=== PATIENT | female | born 1975 | race Caucasian/White ===

== ENCOUNTER 2017-07-30 08:45 | Observation (INO) | payer OTHER ==
--- NOTE | 2017-07-27 19:53 | PDGENHP ---
History and Physical History and Physical: Assessment and Plan: 1. Endometriosis of pelvic peritoneum Paris has chronic pelvic pain causing dysmenorrhea and dyspareunia from persistent pelvic endometriosis. We reviewed all conservative and surgical options. At the end of our discussion she is interested in surgical removal. This will be a robotic excision of endometriosis likely with hysterectomy mid urethral sling and rectocele repair. 2. Dysmenorrhea 3. Dyspareunia, female 4. Genuine stress urinary incontinence 5. Rectocele Subjective: Patient ID: Paris Cruz is a 41 y.o. female who presents to [facility] for endometriosis. HPI Paris is a 41-year-old para 2 woman who presents to discuss endometriosis. She has had dysmenorrhea and pelvic pain her entire life. She also has heavy menstrual flow. She often had to miss work or school during her menses. In 2012 she underwent an endometrial ablation treatment to treat her heavy menses. She did not have time to recover from a hysterectomy because she was in graduate school. This did greatly reduce her flow but not her pain. She feels constant left lower quadrant pain. There is some cyclic nature on the right side. The pain radiates to her thighs back and hips. She also has some joint and muscle pain. She does have deep dyspareunia. She has a history of irritable bowel syndrome which flares with her cycles. She can have up to 3-5 bowel movements per day. She had a colonoscopy in 2013 which was reportedly normal. She underwent a laparoscopy in June 2014 where she was found to have endometriosis. This apparently was fulgurated. She brought in a copy of operative photos which shows some thick nodularity of the uterosacral ligaments especially the right. A left salpingectomy was performed with endometriosis on the pathology specimen. Additionally she leaks urine with coughing laughing and sneezing. She has tried pelvic muscle strengthening without success in her leaking. She does at times have to splint the perineal body to pass bowel movements. Her regular real estate inspector is Maricruz Tolbert. Paris is and receiving a degree in counseling. She is extremely tired of the pain. She does not desire anymore children. PastMedicalHistory Past Medical History: Diagnosis Date Anxiety Hypertension PastSurgicalHistory Past Surgical History: Procedure Laterality Date CHOLECYSTECTOMY ENDOMETRIAL ABLATION HERNIA REPAIR LEEP CURRENT MEDICATIONS: Current Outpatient Prescriptions Medication Sig ALPRAZolam (XANAX) 0.5 mg tablet Take 1 mg by mouth daily as needed. losartan (COZAAR) 50 mg tablet Take 1 tablet by mouth daily. omeprazole (PRILOSEC) 20 mg capsule Take 40 mg by mouth every morning ( before breakfast). No current facility-administered medications for this visit. ALLERGIES: Patient has no known allergies. I have reviewed, verified and agree with the past medical, surgical, , family, social and ROS history as documented by the RN today. Objective: Vital Signs: Visit Vitals BP 100/78 Pulse 85 Temp 37.3 C (99.2 F) (Temporal Artery) Resp 16 Ht 1.575 m (5' 2") Wt 89 kg (196 lb 3.2 oz) SpO2 96% BMI 35.89 kg/m Physical Exam Gen: This is an alert, well developed woman in no distress. Neuro: She moves all extremities. Psych: She is appropriate, oriented, with normal affect. Neck: No thyroid enlargement, adenopathy, or tenderness. Lungs: Clear to ascultation, no wheezes or rales. Heart: Regular rate and rhythm without obvious murmurs. Abdomen: Soft, non-tender, without guarding, rebound, or masses. Extremities: No edema or cyanosis. Pelvic: Normal external genitalia. Non-gaping introitus, vagina without discharge, adequately estrogenized, no significant prolapse. Cervix without lesions or discharge. Uterus normal sized, mobile, non-tender. Adnexa non- tender without enlargement. The uterus has reduced mobility. She is tender along the posterior cervix and insertion of the uterosacral ligaments. The uterosacral ligaments are exquisitely tender especially on the right with tenderness in the posterior cul-de-sac. She has a greater than second-degree low rectocele. The urethra is mobile with obvious leakage of urine when coughing. DATA: I have reviewed the pertinent medical records. TIME/COMMUNICATION: I personally spent a total of 50 minutes. Of that 35 minutes was counseling/ coordination of patient's care. See my note above for details. Andry Rodriguez MD Board Certified Female Pelvic Medicine and Reconstructive Surgery Director of Minimally Invasive Gynecologic Surgery, [facility] Surgeon in Minimally Invasive Gynecologic Surgery [facility] Surgeon in Robotic Surgery
[2017-07-30] MEDS ORDERED: ACETAMINOPHEN 500 MG TAB PO ONE (08:56)
[2017-07-30] MEDS ORDERED: PHENAZOPYRIDINE HCL 200 MG TAB PO ONE (08:56)
[2017-07-30] MEDS ORDERED: GABAPENTIN 400 MG CAP PO ONE (08:56)
[2017-07-30] MEDS ORDERED: LR 1,000 ML IV ONE (08:57)
[2017-07-30] MEDS ORDERED: LIDOCAINE 1% 2 ML INJ ID PRN (08:57)
--- NOTE | 2017-07-30 09:05 | PDHPUP ---
History & Physical Update H&P update statement: This history and physical update is based on an assessment of the patient which was completed after admission or registration (within 24 hours), but prior to the surgery/procedure. H&P update: H&P reviewed & patient examined, no change in patient's condition since H&P completed
[2017-07-30] MEDS ORDERED: ceFAZolin 2 GM/SWFI 2 GM/20 ML SYR IVP ONE (09:22)
--- NOTE | 2017-07-30 09:32 | PDANEPAE ---
ANE History of Present Illness endometriosis ANE Past Medical History - Cardiovascular History Hx Hypertension: Yes Hx Arrhythmias: No Hx Chest Pain: No Hx Coronary Artery / Peripheral Vascular Disease: No Hx CHF / Valvular Disease: No Hx Palpitations: Yes - Pulmonary History Hx COPD: No Hx Asthma/Reactive Airway Disease: No Hx Recent Upper Respiratory Infection: No Hx Oxygen in Use at Home: No Hx Sleep Apnea: No Sleep Apnea Screening Result - Last Documented: Negative - Neurologic History Hx Cerebrovascular Accident: No Hx Seizures: No Hx Dementia: No - Endocrine History Hx Diabetes: No Obesity: yes - Renal History Hx Renal Disorders: No - Liver History Hx Hepatic Disorders: No - Neurological & Psychiatric Hx Hx Neurological and Psychiatric Disorders: Yes Neurological / Psychiatric History Comment: anxiety,depression - Cancer History Hx Cancer: No - Congenital Disorder History Hx Congenital Disorders: No - GI History Hx Gastrointestinal Disorders: Yes Gastrointestinal History Comment: gerd ,ibs,reflux - Other Health History Other Health History: ear pain, ecxma top of hands. endometrosis - Chronic Pain History Chronic Pain: Yes (chronic pian in joints) - Surgical History Prior Surgeries: lap endometriosis. ablation uterine ANE Review of Systems Review of systems is: negative Review of Systems: - Exercise capacity Exercise capacity: >=4 METS METS (RN): 4 METS ANE Patient History - Allergies Allergies/Adverse Reactions: No Known Allergies Allergy (Verified 07/09/17 14:31) - Home Medications Home Medications: Herbals/Supplements -Info Only 07/09/17 [Last Taken 07/22/17] Losartan Potassium 07/09/17 [Last Taken 07/30/17 07:00] Meloxicam 07/09/17 [Last Taken 07/22/17] Omeprazole 07/09/17 [Last Taken 07/30/17 07:00] Xanax 07/09/17 [Last Taken 07/29/17] - NPO status NPO Status: no food or drink >8 hours NPO Since - Liquids (Date): 07/29/17 NPO Since - Liquids (Time): 07:00 NPO Since - Solids (Date): 07/29/17 NPO Since - Solids (Time): 23:00 - Anes Hx Anes Hx: post operative nausea and vomiting - Smoking Hx Smoking Status: Never smoked - Alcohol Use Alcohol Use: Occasionally - Family Anes Hx Family Anes Hx: none Family Hx Anesthesia Complications: none ANE Labs/Vital Signs - Vital Signs Vital Signs: reviewed preoperatively; see RN documention for details Blood Pressure: 157/107 Heart Rate: 96 Respiratory Rate: 16 O2 Sat (%): 96 Height: 157.48 cm Weight: 88.451 kg ANE Physical Exam - Airway Neck exam: FROM Mallampati Score: Class 2 Mouth exam: normal dental/mouth exam - Pulmonary Pulmonary: no respiratory distress - Cardiovascular Cardiovascular: regular rate and rhythym - ASA Status ASA Status: II ANE Anesthesia Plan Anesthesia Plan: general endotracheal anesthesia
[2017-07-30] MEDS ORDERED: MIDAZOLAM 2 MG/2 ML VIAL IVP ONE (09:33)
[2017-07-30] MEDS ORDERED: SCOPOLAMINE HYDROBROMIDE 1 MG/3 DAYS PATCH TD ONE (09:34)
[2017-07-30] MEDS ORDERED: LIDOCAINE 2% 5 ML SDV ONE (09:44)
[2017-07-30] MEDS ORDERED: ROCURONIUM 100 MG/10 ML VIAL ONE (09:44)
[2017-07-30] MEDS ORDERED: PROPOFOL 200 MG/20 ML VIAL ONE (09:44)
[2017-07-30] MEDS ORDERED: fentaNYL 100 MCG/2 ML INJ ONE ×3 (09:44→12:28)
[2017-07-30] MEDS ORDERED: BUPIVACAINE/EPI 0.5% 30 ML SDV ONE (09:59)
[2017-07-30] MEDS ORDERED: DEXAMETHASONE 4 MG/ML VIAL ONE ×2 (10:11)
[2017-07-30] MEDS ORDERED: ONDANSETRON 4 MG/2 ML VIAL ONE ×2 (10:11→12:24)
[2017-07-30] MEDS ORDERED: ALBUTEROL HFA ANES ONLY 200 PUFFS/8.5 GM MDI IH ONE (10:36)
[2017-07-30] MEDS ORDERED: ONDANSETRON 4 MG/2 ML VIAL IVP PRN ×2 (12:01→12:07)
[2017-07-30] MEDS ORDERED: ONDANSETRON DISINTEGRATING 4 MG TAB PO PRN (12:01)
--- NOTE | 2017-07-30 12:06 | POSTOPPROG ---
Post Op Note Date of Operation: 07/30/17 Surgeon: Andry Rodriguez Janitorial Cleaner: Sofy Amaya Anesthesia: GET(General Endotracheal) Pre-op Diagnosis: endometriosis, rectocele, stress incontinence Post-op Diagnosis: same Procedure: robotic hyst, RSO, bilat ureterolysis, rectocele repain Findings: ureters function at end of case Inf/Abcess present in the surg proc area at time of surgery?: No EBL: Minimal Complications: None
[2017-07-30] MEDS ORDERED: HYDROmorphONE/DILAUDID 2 MG/ML INJ IVP PRN (12:07)
[2017-07-30] MEDS ORDERED: DIAZEPAM 5 MG/ML 1 ML SYR IVP PRN (12:07)
[2017-07-30] MEDS ORDERED: ALBUTEROL 3 ML DEYVIAL IH PRN (12:07)
[2017-07-30] MEDS ORDERED: LR 500 ML IV PRN (12:07)
[2017-07-30] MEDS ORDERED: NALOXONE HCL 0.4 MG/ML INJ IVP PRN (12:07)
[2017-07-30] MEDS ORDERED: HYDROCODONE/APAP 5/325 TAB PO PRN (12:07)
[2017-07-30] MEDS ORDERED: PROMETHAZINE HCL 25 MG/ML INJ IVP PRN (12:07)
[2017-07-30] MEDS ORDERED: oxyCODONE IR 5 MG TAB PO PRN (12:07)
--- NOTE | 2017-07-30 12:07 | POSTANESTH ---
Post Anesthetic Evaluation Cardiovascular Status: Normal, Stable Respiratory Status: Normal, Stable Level of Consciousness/Mental Status: Can Participate in Eval Pain Control: Adequate, Prn Tx Ordered Nausea/Vomiting Control: Adequate, Prn Tx Ordered Complications Possibly Related to Anesthesia: None Noted
[2017-07-30] MEDS: fentaNYL 100 MCG/2 ML INJ IVP PRN ×2 (12:28→12:45)
[2017-07-30] MEDS ORDERED: LR 1,000 ML IV SCH (12:30)
[2017-07-30] MEDS ORDERED: OXYCODONE/APAP 5/325 TAB PO PRN (13:06)
[2017-07-30] MEDS: PROMETHAZINE HCL 25 MG/ML INJ IVP PRN (14:44)
[2017-07-30] MEDS: HYDROmorphONE/DILAUDID 2 MG/ML INJ IVP PRN ×2 (14:45→20:00)
[2017-07-30] MEDS: KETOROLAC 30 MG/1 ML SDV IVP SCH ×3 (15:43→21:59)
--- NOTE | 2017-07-30 17:50 | GOP ---
[f rep st] OPERATIVE REPORT DATE OF OPERATION: 07/30/2017 SURGEON: Andry Rodriguez MD FURNACE FIRER: Sofy Amaya CFA. ANESTHESIA: General. PREOPERATIVE DIAGNOSIS: 1. Endometriosis. 2. Dysmenorrhea. 3. Cyclic pelvic pain. 4. Symptomatic rectocele. 5. Stress urinary incontinence. 6. Second-degree uterine prolapse. POSTOPERATIVE DIAGNOSIS: 1. Endometriosis. 2. Dysmenorrhea. 3. Cyclic pelvic pain. 4. Symptomatic rectocele. 5. Stress urinary incontinence. 6. Second-degree uterine prolapse. PROCEDURE PERFORMED: 1. Robotic-assisted total laparoscopic hysterectomy, left salpingo-oophorectomy, right salpingectomy . 2. Excision of endometriosis throughout posterior cul-de-sac and bilateral ovarian fossae. 3. Bilateral ureterolysis. 4. Uterosacral ligament colpopexy. 5. Right ovarian pexy. 6. Rectocele repair. 7. Transobturator sling. 8. Cystoscopy. FINDINGS: SPECIMENS: 1. Uterus, bilateral tubes and left ovary. 1. Pelvic peritoneum with endometriosis. 2. ESTIMATED BLOOD LOSS: Scant. DESCRIPTION OF PROCEDURE: The patient was taken to the operating room where she was identified. Gen eral anesthesia was administered and found to be adequate. She was placed in the lithotomy position and prepared and draped in normal sterile fashion. A VCare uterine manipulator was placed into the e ndometrial cavity and sutured to the cervix. A Herrera catheter was then placed. A 1 cm supraumbilical incision was made through her prior surgical scar. The Veress needle with the CO2 gas flowing was advanced into the peritoneal cavity. The abdomen was then insufflated with carbo n dioxide gas. The 12 mm trocar followed by the laparoscope were then inserted. The upper abdomen w as unremarkable. There was no evidence of endometriosis on either diaphragm. Two lateral ports were placed in the right and one on the left under direct visualization. She then was placed in Trendele nburg position, and the da Mireya robot docked on the left side. The instruments were then brought in to the abdominal cavity under direct visualization. The patient had multiple areas of endometriosis at the posterior cul-de-sac and bilateral ovarian fossae. She had a nodule on the right uterosacral ligament, slightly adherent to the right ureter. The left round ligament was divided. The anterior leaf of the broad ligament was incised to the bifurcation of left common iliac vessels. A window was created in the posterior leaf anterior to the right ureter. The left infundibulopelvic vessels were then skeletonized, cauterized, and transected. The left anterior leaf of the broad ligament was the n incised over the uterine vasculature and across the cervix. The bladder gently dissected off the c ervix and upper vagina. The left ureter was adherent to the left uterosacral ligament. As a result, a left ureterolysis was required from the pelvic brim all the way down to the bladder. The ureter w as dissected free and lateralized off the overlying peritoneum and endometriosis. Once this was acco mplished, then the left uterine vasculature was then cauterized and transected. The right fallopian tube was then along the mesosalpinx. The right utero-ovarian ligament, followed by the round ligament were then cauterized and transected. The anterior leaf of the broad ligament was incised on the right and the bladder further taken off. A right ureterolysis was also r equired. The peritoneum at the pelvic brim was incised. Again the ureter was dissected free and lat eralized off the overlying peritoneum and endometriosis and gently dissected off the nodule, which wa s adherent to the right uterosacral ligament. Once this was accomplished, the right uterine vasculat ure was then cauterized and transected. A circumferential colpotomy incision was then made with the hot kaya and the specimen removed through the vagina. The peritoneum and endometriosis from the pe lvic sidewalls including the uterosacral ligaments were completely excised. This also included the p osterior cul-de-sac peritoneum. All specimens were then removed through the vagina. The vaginal cuff was then closed with a running suture of 0 V-Loc 180. A bilateral uterosacral ligam ent colpopexy was performed by attaching the lateral aspects of the vaginal cuff to the ipsilateral u terosacral ligaments near their insertion into the coccygeal-sacrospinous ligament complexes. The pe lvis was irrigated with sterile saline, and hemostasis was present. The right ovary was then transaction manager d to the round ligament near the internal inguinal ring with 3-0 Vicryl suture. The robot was then u ndocked. The fascia was closed with 0 Vicryl, skin with 4-0 Monocryl and surgical adhesive. Attention was then turned to the sling portion of the procedure. A mid urethral incision was made wi th a scalpel. Tunnels were created bilaterally out to the obturator internus muscles. Skin incision s were made over the obturator notches. The Halo trocar was placed through the left skin incision, r edirected around the ischial pubic rami and out through the vaginal incision using a vaginal finger a s a guide. The lateral sulci were examined and no evidence of vaginal injury had occurred. The slin g was then attached and brought out along the same course. The exact same procedure was performed at the patient's right side. The sling was then adjusted to allow a small mid urethral gap. The vagin al epithelium was closed with 2-0 Vicryl, skin with 4-0 Monocryl. Cystoscopy was then performed. Both ureters had vigorous jets of urine. There was no evidence of bl adder nor urethral injury seen. No sutures or mesh was seen within the bladder nor urethra. No obvi ous pathology was seen. A transverse incision was then made along the perineal body. The posterior vaginal epithelium was un dermined with the Metzenbaum scissors incised sagittally. The epithelium was gently dissected off th e underlying rectovaginal connective tissue. The connective tissue was plicated in the midline with multiple interrupted sutures of 0 Vicryl. The bulbous spongiosis and transverse perineal muscles wer e also plicated in the midline. The excess epithelium was then trimmed and closed with a running 2-0 Vicryl suture. Vaginal packing was then placed. Anesthesia was reversed, and the patient was taken to the PACU awake in stable condition. COMPLICATIONS: None. DISPOSITION: Patient stable to PACU. /[id number]/MODL
[2017-07-30] MEDS: SIMETHICONE 80 MG TAB CHEW PO SCH ×3 (18:59→22:00)
[2017-07-30] MEDS: DOCUSATE SODIUM 100 MG CAP PO SCH (21:59)
[2017-07-31] MEDS: PROMETHAZINE HCL 25 MG/ML INJ IVP PRN (00:19)
[2017-07-31] MEDS: KETOROLAC 30 MG/1 ML SDV IVP SCH ×2 (04:01→10:29)
[2017-07-31] MEDS ORDERED: SUMAtriptan 50 MG TAB PO ONE (04:45)
[2017-07-31] MEDS: HYDROCODONE/APAP 5/325 TAB PO PRN ×2 (06:26→10:39)
[2017-07-31] MEDS: SIMETHICONE 80 MG TAB CHEW PO SCH (08:16)
[2017-07-31] MEDS: DOCUSATE SODIUM 100 MG CAP PO SCH (08:16)
[2017-07-31] MEDS ORDERED: LOSARTAN POTASSIUM 50 MG TAB PO SCH (09:00)
[2017-07-31] MEDS ORDERED: PATCH REMOVAL 1 EA PATCH TD ONE (09:34)
--- NOTE | 2017-07-31 10:18 | SOAPPROG ---
SOAP Progress Note Assessment/Plan: Assessment: Doing well, no issues. Plan: 07/31/17 10:15 Discharge home Instructions and precautions are reviewed. Subjective: No complaints. Pain controlled, ambulating, voiding, and tolerating a general diet. Surgery explained. Objective: Vital Signs Temp Pulse Resp BP Pulse Ox 36.6 C 99 16 141/95 H 96 07/31/17 04:53 07/31/17 04:53 07/31/17 04:53 07/31/17 04:53 07/31/17 04:53 Laboratory Results 07/31/17 04:15 07/30/17 07/31/17 08/01/17 05:59 05:59 05:59 Intake Total 2600 Output Total 2610 200 Balance -10 -200 Physical Exam - Physical Exam General Appearance: WD/WN, alert, no apparent distress Respiratory: lungs clear Cardiac/Chest: regular rate, rhythm Abdomen: normal bowel sounds, non-tender, soft Skin: normal color, warm/dry (Incisions clean, dry, and intact) ICD10 Worksheet Patient Problems: Problems Problem Status Onset Endometriosis of pelvic peritoneum Acute - ICD10 Problem Qualifiers (1) Endometriosis of pelvic peritoneum
[2017-07-31 10:35] VITALS: BP 136/87
--- NOTE | 2017-07-31 13:39 | GDS ---
[f rep st] DISCHARGE SUMMARY DISCHARGE DIAGNOSES: 1. Endometriosis. 2. Pelvic pain. 3. Dysmenorrhea. 4. Symptomatic rectocele. 5. Stress urinary incontinence. PROCEDURES: 1. Robotic-assisted total laparoscopic hysterectomy, left salpingo-oophorectomy, and right salpingec efrain. 2. Excision of extensive endometriosis. 3. Bilateral ureterolysis. 4. Uterosacral ligament colpopexy. 5. Right ovariopexy. 6. Rectocele repair. 7. Transobturator sling. 8. Cystoscopy. HOSPITAL COURSE: The patient suffered from extensive endometriosis with secondary pain issues, as we ll as stress incontinence and a rectocele. She was taken to the operating room on 07/30/2017, where she underwent the above-mentioned procedures without complications. Her postoperative course was uneventful. The morning after surgery, she was ambulating, voiding, and tolerating a general diet. She was discharged home on postoperative day #1 in good condition. Medi cations included Percocet and ibuprofen for pain. She is to follow up in the office 2 weeks after steve hernandez. /[id number]/MODL
== END 2017-07-31 14:00 | disposition home or self-care (01) ==
LOC: F3E 08:45 → FOB 13:50
PROVIDERS: ADMIT Obstetrics & Gynecology; ATTEND Obstetrics & Gynecology
PROC: 0UT1FZZ Resection of Left Ovary, Via Natural or Artificial Opening With Percutaneous Endoscopic Assistance (ICD-10-PCS; principal; 2017-07-30 09:45)
PROC: 0UT9FZZ Resection of Uterus, Via Natural or Artificial Opening With Percutaneous Endoscopic Assistance (ICD-10-PCS; principal; 2017-07-30 09:45)
PROC: 8E0Y4CZ Robotic Assisted Procedure of Lower Extremity, Percutaneous Endoscopic Approach (ICD-10-PCS; principal; 2017-07-30 09:45)
PROC: 0UUG8JZ Supplement Vagina with Synthetic Substitute, Via Natural or Artificial Opening Endoscopic (ICD-10-PCS; principal; 2017-07-30 09:45)
PROC: 0UT7FZZ Resection of Bilateral Fallopian Tubes, Via Natural or Artificial Opening With Percutaneous Endoscopic Assistance (ICD-10-PCS; principal; 2017-07-30 09:45)
PROC: 0WQN0ZZ Repair Female Perineum, Open Approach (ICD-10-PCS; principal; 2017-07-30 09:45)
PROC: [UNRECOGNIZED PROCEDURE] (principal; 2017-07-30 09:45)
PROC: 0UBC8ZZ Excision of Cervix, Via Natural or Artificial Opening Endoscopic (ICD-10-PCS; principal; 2017-07-30 09:45)
PROC: 0TUC0JZ Supplement Bladder Neck with Synthetic Substitute, Open Approach (ICD-10-PCS; principal; 2017-07-30 09:45)
PROC: 0UBF8ZZ Excision of Cul-de-sac, Via Natural or Artificial Opening Endoscopic (ICD-10-PCS; principal; 2017-07-30 09:45)
DX: N80.3 Endometriosis of pelvic peritoneum (principal); N94.6 Dysmenorrhea, unspecified; R10.2 Pelvic and perineal pain; N81.6 Rectocele; N39.3 Stress incontinence (female) (male); N94.12 Deep dyspareunia; N81.2 Incomplete uterovaginal prolapse; K58.9 Irritable bowel syndrome, unspecified; F41.9 Anxiety disorder, unspecified; I10 Essential (primary) hypertension; K21.9 Gastro-esophageal reflux disease without esophagitis
CPT/HCPCS: 57250; 57288; 57425; 58552; 58679; G0378; C1771; J0690; J1100; J1170; J1885; J2250; J2405; J2550; J2704; J3010